=== PATIENT | male | born 1965 | race Caucasian/White ===

== ENCOUNTER → 2020-10-30 | Outpatient (CLI) | payer MEDICARE, BC ==
--- NOTE | 2020-10-30 16:30 | RAD ---
MR#: [id number] Date of Study: 10/30/2020 Ordering Physician: RU ORTIZ, Referring Physician: ROME SILVER Tech: APPROVED REPORT Test Type: Exercise Stress Nurse/Tech: CHELLY ALVAREZ Test Indications: [id number] Cardiac History: SEE EMR Medications: SEE EMR Medical History: SEE EMR Resting ECG: SR Resting Heart Rate: 89 bpm Resting Blood Pressure: 118/75mmHg Pretest Chest Pain: No chest pain Nurse/Tech Notes S1S2, LUNGS CTA, DENIED CP, PT DOES STATE HE HAS SOA. VSS. Consent: The procedure was explained to the patient in lay terms. Informed consent was witnessed. Mike eout was entered into [employer]. History and Stress Test performed by GEOFF Chakraborty Pharm. Details Pharmacologic stress testing was performed using 0.4mg per 5ml of regadenoson given intravenously ove r 7-10 seconds. Stress Symptoms PT C/O OF SHORTNESS OF BREATH DURING TREADMILL TEST. BP ELEVATED. DENIED CP. POST EXERCISE Reason for Termination: Reached target heart rate Target HR: 141 Max HR: 152 bpm 107% of Maximum Predicted HR: 141 bpm Exercise duration: 4:18 min:sec, 2 Stage Exercise capacity: 7.0METs Max Blood Pressure: 198/86mmHg Blood Pressure response to exercise: Normal blood pressure response during stress. Heart Rate response to exercise: NORMAL HEART RATE RESPONSE DURING STRESS. Chest Pain: No. Arrhythmia: No. ST Change: No. NO SIGNIFICANT CHANGES FROM BASELINE EKG. INTERPRETATION Stress EKG Conclusion: Normal baseline EKG. Stress EKG is grossly unremarkable. Severely limited ex ercise capacity. Conclusion 1. Normal resting EKG 2. Below average exercise capacity with 4 minutes on a Joaquin protocol reaching stage II 3. Stress EKG is grossly unremarkable although due to low workload specificity and sensitivity of thi s test are decreased. Recommendations Consider chemical stress testing as clinically indicated Signed by : Singh Snell, Electronically Approved : 10/30/2020 16:30:02
== END ==
LOC: NM 11:38
PROVIDERS: ATTEND Internal Medicine Pulmonary Disease
DX: R07.89 Other chest pain (principal); R06.00 Dyspnea, unspecified
CPT/HCPCS: 93017

== ENCOUNTER → 2020-11-03 | Outpatient (CLI) | payer MEDICARE | LOC: SLPLAB 18:44 → EDUNIT# 19:00 | PROVIDERS: ATTEND Internal Medicine Pulmonary Disease | DX: G47.33 Obstructive sleep apnea (adult) (pediatric) (principal) | CPT/HCPCS: 95810 ==